=== PATIENT | female | born 1980 | race Caucasian/White ===

== ENCOUNTER → 2024-02-16 07:29 | Outpatient (REF) | payer BC, SELFPAY | LOC: WDC 07:29 | PROVIDERS: ATTENDING PHYSICIAN Nurse Practitioner Adult Health | DX: Z12.31 Encounter for screening mammogram for malignant neoplasm of breast (principal) | CPT/HCPCS: 77063; 77067 ==

== ENCOUNTER → 2025-02-18 07:47 | Outpatient (REF) | payer BC, SELFPAY | LOC: WDC 07:47 | PROVIDERS: ATTENDING PHYSICIAN Internal Medicine | DX: Z12.31 Encounter for screening mammogram for malignant neoplasm of breast (principal) | CPT/HCPCS: 77063; 77067 ==